=== PATIENT | male | born 1990 | race Caucasian/White ===

== ENCOUNTER 2016-04-23 12:55 | Emergency (ER) | payer OTHER ==
[2016-04-23 13:05] VITALS: BP 142/82; BMI 35.9
--- NOTE | 2016-04-23 14:50 | DR.GENAD ---
HPI - PCP Primary Care Physician: LAINEY - HPI Comment HPI Comment: WORSE TODAY. NO DRAINAGE. - Complaint/Symptoms Chief Complaint Doctors Comments: REDNESS WITH CENTER PUSTULES FOR 5 DAYS. Chief Complaint:: BLACKENED SPOT TO LEFT LOWER ABD THAT IS RED WARM TO TOUCH AND VERY PAINFUL. NOT DRAINING. - Nurses notes reviewed Nurses Notes Review: Yes - Source History Provided: Patient - Mode of Arrival Mode of Arrival: Ambulatory - Timing Onset of Chief Complaint: 04/18/16 Came on: Suddenly - Duration Duration: Constant Duration: Days - Severity Severity: Moderate PMH - PMH Past Medical History: No Past Surgical History: Yes Surgical History: Tonsillectomy - Family History History of Family Medical Conditions: Yes Family Medical History: Diabetes Mellitus, Cancer, [place], Coronary Artery Disease, Hypertension - Social History Type of Tobacco Use: Cigarettes Alcohol Use: None Do you use any recreational Drugs:: Yes (THC) Lives With: Other Lives Where: Home - infectious screening In the last 2 months have you had wt loss of >10#?: NO Have you had fever, night sweats or hemotysis?: No Have you traveled outside the country in the last 6 months?: No Isolation: Standard ROS - Review of Systems Constitutional: No Symptoms Reported Eyes: No Symptoms Reported ENTM: No Symptoms Reported Respiratoy: No Symptoms Reported Cardiovascular: No Symptoms Reported Gastrointestinal/Abdominal: No Symptoms Reported Genitourinary: No Symptoms Reported Neurological: No Symptoms Reported Musculoskeletal: No Symptoms Reported Integumentary: Change in Color, Rash Hematologic/Lymphatic: No Symptoms Reported Endocrine: No Symptoms Reported All Other Systems: Reviewed and Negative PE - Vital Signs Vitals: Temperature 97.8 F Pulse Rate 61 Respiratory Rate 14 Blood Pressure 142/82 O2 Sat by Pulse Oximetry 99 - General Limitations: No Limitations General Appearance: Alert - Head Head Exam: Normal Inspection - Eyes Eye exam: Normal Appearance - ENT ENT Exam: Normal External Ear Exam External Ear Exam: Normal External Inspection TM/Canal Exam: Bilateral Normal Nose Exam: Normal Nose Exam Mouth Exam: Normal Inspection Throat Exam: Normal Inspection - Neck Neck Exam: Trachea Midline - Chest Chest Inspection: Symmetric Chest Wall Rise - Respiratory Respiratory Exam: Bilateral Clear to Auscultation - Cardiovascular Cardiovascular Exam: Regular Rate, Normal Rhythm, Normal Heart Sounds - Abdominal Exam Abdominal Tenderness: Other (LEFT LOWER ABDOMINAL WALL REDNESS SIZE OF GOLF BALL WITH CENTER TARGET LIKE LESION. NO DRAINAGE) - Extremities Extremities Exam: Normal Inspection - Back Back Exam: Normal Inspection - Neurologic Neurological Exam: Alert, Oriented X3 - Skin Skin Exam: Rash, Erythema MDM - Differential Diagnosis Differential Diagnosis: CELLULITIS LOWER LEFT ABDOMINAL WALL. Course - Education/Counseling Education/Counseling: Patient, Education Educated On: Diagnosis, Needs for Follow Up - Diagnosis Discharge Problem: Cellulitis of left abdominal wall - Discharge Plan Disposition: 01 HOME, SELF-CARE Condition: Stable Prescriptions: Acetaminophen W/ Codeine [Tylenol/Codeine #3 300-30 mg] 1 tab PO Q6H PRN #12 tab PRN Reason: Pain Sulfamethoxazole-Trimethoprim [BACTRIM DS TAB 800/160 MG *] 1 tab PO BID #20 tab - Follow ups/Referrals Follow ups/Referrals: [facility],None [Primary Care Provider] - 3 days - Instructions Instructions: Cellulitis, [id number] Additional Instructions: RETURN TO ED IF WORSE.
== END 2016-04-23 15:09 | disposition home or self-care (01) ==
LOC: ER 12:55
DX: L03.311 Cellulitis of abdominal wall (principal)
CPT/HCPCS: 99281; 99282

== ENCOUNTER → 2016-06-27 | Outpatient (CLI) | payer OTHER ==
--- NOTE | 2016-07-02 16:22 | MRI ---
HISTORY: Shoulder pain. NONCONTRAST MRI EXAM OF THE RIGHT SHOULDER. Technique: Multiplanar and multisequence MR examination of the right shoulder is performed at [address] without the use of IV contrast. Findings: ? Rotator cuff: The subscapularis is intact. No medial displacement of the biceps tendon is seen. Th ere is tendinosis of the posterior supraspinatus, distally, at the footplate. Also seen is tendinosi s of the anterior infraspinatus at the footplate without full-thickness rotator cuff tear seen. No f ocal rotator cuff tear or rotator cuff atrophy is seen. The teres minor is intact. Increased T2 sign al change and linear fluid is seen in the subacromial \T\ subdeltoid bursa, compatible with mild sub acromial \T\ subdeltoid bursitis. ? Intra-articular biceps: No injury, tear, or displacement observed. ? Glenoid labrum: No displaced labral tear. Mild superior labral fraying seen. ? Acromioclavicular joint: Grade 5 AC joint separation which appears chronic in appearance with full -thickness tears of the coraco-clavicular and acromioclavicular ligaments with marked widening of th e AC joint and with the distal clavicle seen within the trapezius and with high-grade tears of the t rapezial and deltoid clavicular attachments. ? Glenohumeral joint: No joint effusion, focal joint erosion, or loose body seen. ? Bone marrow: No altered T2 signal seen to suggest an acute fracture, bone marrow contusion, or agg ressive bone marrow lesion. No Hill-Sachs deformity or bony Bankart lesion is seen, either. No other bone marrow signal abnormality is observed. ? Other: No concerning or infiltrative soft tissues masses are seen. 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 The super iorly displaced distal clavicle lies within the trapezius with high-grade tears of the trapezial \T\ deltoid clavicular attachments. No acute fractures are identified. No other shoulder joint injuries or musculoskeletal abnormalities are seen. Reported By:
== END ==
LOC: RAD 08:36
PROVIDERS: ATTEND Specialist
DX: S43.101A Unspecified dislocation of right acromioclavicular joint, initial encounter (principal); X58.XXXA Exposure to other specified factors, initial encounter
CPT/HCPCS: 73221